=== PATIENT | female | born 2000 | race Caucasian/White ===

== ENCOUNTER 2018-09-17 22:22 | Emergency (ER) | payer OTHER ==
[2018-09-17 22:30] VITALS: BMI 29.1
[2018-09-17] MEDS ORDERED: SODIUM CHLORIDE 1,000 ML IV STA (22:54)
[2018-09-17] MEDS ORDERED: morphine CARPU-JECT 4 MG/1 ML DISP.SYRIN IVPUSH PRN (22:54)
[2018-09-17] MEDS ORDERED: ONDANSETRON 4 MG/2 ML VIAL IVPUSH ONE (22:54)
[2018-09-17] MEDS ORDERED: KETOROLAC TROMETHAMINE 15 MG/ML VIAL IVPUSH ONE (22:56)
--- NOTE | 2018-09-17 22:59 | PDOC ---
Attending Attestation - HPI HPI: 09/17/18 23:19 The patient is a 18 year old female, with no significant past medical history, who presents to the emergency department today complaining of R sided flank pain and dysuria beginning about an hour ago, along with one episode of vomiting. She states that due to the pain, she cant get comfortable. The patient denies chest pain, shortness of breath, headache and dizziness. Denies fever, chills, diarrhea and constipation. Denies hematuria or urgency. Allergies: NKA <Margo Soria - Last Filed: 09/17/18 23:19> - Resident Resident Name: Mark Fonseca - ED Attending Attestation I have performed the following: I have examined & evaluated the patient, The case was reviewed & discussed with the resident, I agree w/resident's findings & plan, Exceptions are as noted - Physicial Exam PE: 09/18/18 04:46 Agree with exam as documented by resident +R CVAT - Medical Decision Making 09/18/18 04:47 Likely nephrolithiasis, eval for infection f/u imaging, analgesia Imaging shows stone that's likely to pass questionable UA abx course, urology f/u dc <Farhan Del Castillo - Last Filed: 09/18/18 04:47> Attestations - Attestations 09/17/18 23:19 Documentation prepared by Margo Soria, acting as medical education manager for Farhan Del Castillo MD. <Margo Soria - Last Filed: 09/17/18 23:19>
[2018-09-17] MEDS ORDERED: KETOROLAC TROMETHAMINE 15 MG/ML VIAL ONE (23:25)
[2018-09-17] MEDS ORDERED: ONDANSETRON 4 MG/2 ML VIAL ONE (23:25)
[2018-09-17] MEDS ORDERED: morphine SULFATE 4 MG/ML VIAL ONE ×2 (23:25→23:40)
[2018-09-17 23:28] LABS: BASO % 0.4 % (0-2.0); EOS % 0.6 % (0-4.5); HEMATOCRIT 40.1 % (32.4-45.2); HEMOGLOBIN 14.1 GM/dL (10.7-15.3); LYMPH % 27.6 % (8-40); MCH 30.9 pg (25.7-33.7); MCHC 35.1 g/dl (32.0-36.0); MEAN PLT VOLUME 8.6 fl (7.5-11.1); NEUT % 64.4 % (42.8-82.8); PLATELET COUNT 235 K/MM3 (134-434); RBC 4.56 M/mm3 (3.60-5.2); RDW 13.6 % (11.6-15.6); WHITE BLOOD COUNT 14.1 K/mm3 (4.0-10.0)
--- NOTE | 2018-09-17 23:29 | PDOC ---
History of Present Illness - General Chief Complaint: Back Pain Stated Complaint: VOMITTING/BODY PAINS Time Seen by Provider: 09/17/18 22:47 History Source: Patient Exam Limitations: No Limitations - History of Present Illness Initial Comments: 09/17/18 23:24 Patient is 18F with no significant medical history here today complaining of several hours of dysuria and R flank pain. Patient states that the pain started suddenly and that she cannot get comfortable. Patient endorses associated vomiting and nausea. Denies fevers, chills. Denies vaginal discharge and vaginal pain. Patient has implantable control in L arm. No prior abdominal surgeries. No constipation/diarrhea. Past History - Past Medical History Allergies/Adverse Reactions: Allergies Allergy/AdvReac Type Severity Reaction Status Date / Time No Known Allergies Allergy Verified 09/17/18 22:30 Home Medications: Ambulatory Orders Cephalexin Monohydrate [Keflex -] 500 mg PO BID #14 capsule 09/18/18 COPD: No - Suicide/Smoking/Psychosocial Hx Smoking History: Never smoked Have you smoked in the past 12 months: No Information on smoking cessation initiated: No Hx Alcohol Use: No Drug/Substance Use Hx: No Review of Systems - Review of Systems Comments:: 09/17/18 23:27 GENERAL/CONSTITUTIONAL: No fever or chills. No weakness. HEAD, EYES, EARS, NOSE AND THROAT: No change in vision. No sore throat. CARDIOVASCULAR: No chest pain or shortness of breath RESPIRATORY: No cough, wheezing, or hemoptysis. GASTROINTESTINAL: +nausea, +vomiting, no diarrhea or constipation. GENITOURINARY: + dysuria, frequency, no hematuria MUSCULOSKELETAL: No joint or muscle swelling or pain. No neck or back pain. SKIN: No rash NEUROLOGIC: No headache, vertigo, loss of consciousness, or change in strength/ sensation. ALLERGIC/IMMUNOLOGIC: No hives or skin allergy. *Physical Exam - Vital Signs Last Vital Signs Temp Pulse Resp BP Pulse Ox 98.5 F 93 H 18 124/82 100 09/17/18 22:26 09/17/18 22:26 09/17/18 22:26 09/17/18 22:26 09/17/18 22:26 - Physical Exam Comments: 09/17/18 23:28 GENERAL: Awake, alert, and fully oriented, constantly shifting in bed HEAD: No signs of trauma, normocephalic, atraumatic EYES: PERRLA, EOMI, sclera anicteric, conjunctiva clear ENT: Auricles normal inspection, hearing grossly normal, nares patent, oropharynx clear without exudates. Moist mucosa NECK: Normal ROM, supple, no lymphadenopathy, JVD, or masses LUNGS: No distress, speaks full sentences, clear to auscultation bilaterally HEART: Regular rate and rhythm, normal S1 and S2, no murmurs, rubs or gallops, peripheral pulses normal and equal bilaterally. ABDOMEN: Soft, nontender, normoactive bowel sounds. No guarding, no rebound. + R sided CVA EXTREMITIES: Normal inspection, Normal range of motion, no edema. No clubbing or cyanosis. NEUROLOGICAL: Cranial nerves II through XII grossly intact. Normal speech, normal gait, no focal sensorimotor deficits SKIN: Warm, Dry, normal turgor, no rashes or lesions noted. Moderate Sedation - Procedure Monitoring Vital Signs: Procedure Monitoring Vital Signs Temperature 98.5 F 09/17/18 22:26 Pulse Rate 93 H 09/17/18 22:26 Respiratory Rate 18 09/17/18 22:26 Blood Pressure 124/82 09/17/18 22:26 O2 Sat by Pulse Oximetry (%) 100 09/17/18 22:26 ED Treatment Course - LABORATORY CBC & Chemistry Diagram: 09/17/18 23:21 09/17/18 23:21 - RADIOLOGY Radiology Studies Ordered: Category Date Time Status SPIRAL- RENAL-STONE CT [CT] Stat CT Scan 09/17/18 22:55 Ordered Medical Decision Making - Medical Decision Making 09/17/18 23:28 Patient is 18F here today with right sided flank pain and dysuria. Vitals normal and stable. DDx includes, but is not limited to: uti, kidney stone, pyelo. Will evaluate with abdominal labs, spiral ct. Will treat with morphine, fluids, zofran. 09/18/18 03:47 CBC shows leukocytosis. CMP normal. UA ?positive, likely dirty sample. CT shows 2mm stone at R UVJ. Patient's pain initially worsened, but now has greatly improved. Given return precautions. Given urology referral. Covering with keflex, but very low suspicion for infected stone. *DC/Admit/Observation/Transfer Diagnosis at time of Disposition: Kidney stone - Discharge Dispostion Disposition: HOME Condition at time of disposition: Good Decision to Admit order: No - Prescriptions Prescriptions: Cephalexin Monohydrate [Keflex -] 500 mg PO BID #14 capsule - Referrals Referrals: Preet Galarza MD [Staff Physician] - - Patient Instructions Printed Discharge Instructions: DI for Kidney Stones Additional Instructions: Please follow up with a urologist, a referral has been included in your paperwork. Please take your antibiotics as prescribed until the prescription is completed. Please return if you have any new, worsening or concerning symptoms, especially increasing pain and fever. - Post Discharge Activity Forms/Work/School Notes: Back to School
[2018-09-17] MEDS ORDERED: morphine CARPU-JECT 4 MG/1 ML DISP.SYRIN IVPUSH ONE ×2 (23:39)
[2018-09-17 23:56] LABS: ALBUMIN 4.7 g/dl (3.4-5.0); ALK PHOS 93 U/L (45-117); ANION GAP 9 MMOL/L (8-16); BILIRUBIN,TOTAL 0.5 mg/dL (0.2-1); BLOOD UREA NITROGEN 10 mg/dL (7-18); CALCIUM 9.7 mg/dL (8.5-10.1); CHLORIDE 105 mmol/L (98-107); CO2 24 mmol/L (21-32); CREATININE 0.7 mg/dL (0.55-1.3); GLUCOSE,RANDOM 106 mg/dL (74-106); LIPASE 178 U/L (73-393); SGOT/AST 27 U/L (15-37); SGPT/ALT 29 U/L (13-61); SODIUM 137 mmol/L (136-145); TOT PROT 7.8 g/dl (6.4-8.2)
[2018-09-18] MEDS ORDERED: morphine SULFATE 4 MG/ML VIAL ONE ×2 (01:25→02:34)
[2018-09-18 01:40] LABS: URINE APPEARANCE CLOUDY; URINE BILIRUBIN NEGATIVE (<2.0 mg/dL); URINE COLOR YELLOW; URINE GLUCOSE (UA) NEGATIVE (NEGATIVE); URINE KETONE TRACE (NEGATIVE); URINE LEUK ESTERASE TRACE (NEGATIVE); URINE NITRITE NEGATIVE (NEGATIVE); URINE PROTEIN NEGATIVE (NEGATIVE); URINE UROBILINOGEN NEGATIVE mg/dL (0.2-1.0)
[2018-09-18 01:53] LABS: EPI CELLS FEW /HPF (FEW); URINE BACTERIA RARE /hpf (NONE SEEN); URINE MUCUS MANY
[2018-09-18] MEDS ORDERED: morphine CARPU-JECT 4 MG/1 ML DISP.SYRIN IVPUSH ONE (02:26)
[2018-09-18] MEDS ORDERED: CEPHALEXIN MONOHYDRATE 500 MG CAPSULE (UD) PO ONE (03:47)
[2018-09-18] MEDS ORDERED: CEPHALEXIN MONOHYDRATE 500 MG CAPSULE (UD) ONE (04:18)
[2018-09-18 04:26] VITALS: BP 132/86; PULSE 99; TEMP 98.2
== END 2018-09-18 04:30 | disposition home or self-care (01) ==
LOC: JER 22:22
PROC: 3E033NZ Introduction of Analgesics, Hypnotics, Sedatives into Peripheral Vein, Percutaneous Approach (ICD-10-PCS; principal; 2018-09-17)
PROC: 3E0337Z Introduction of Electrolytic and Water Balance Substance into Peripheral Vein, Percutaneous Approach (ICD-10-PCS; 2018-09-17)
DX: N20.0 Calculus of kidney (principal)
CPT/HCPCS: 36415; 74176; 80053; 81003; 81015; 83690; 84703; 85025; 87086; 99281-25; J7030

== ENCOUNTER 2018-09-18 18:10 | Emergency (ER) | payer OTHER ==
[2018-09-18] MEDS ORDERED: SODIUM CHLORIDE 1,000 ML IV STA (18:13)
[2018-09-18] MEDS ORDERED: ONDANSETRON 4 MG/2 ML VIAL IVPUSH ONE ×2 (18:13→18:35)
[2018-09-18] MEDS ORDERED: KETOROLAC TROMETHAMINE 30 MG/1 ML VIAL IVPUSH STA (18:13)
[2018-09-18 18:16] VITALS: TEMP 97.8; BMI 29.1
[2018-09-18] MEDS ORDERED: ONDANSETRON 4 MG/2 ML VIAL ONE ×2 (18:16→18:39)
[2018-09-18] MEDS ORDERED: KETOROLAC TROMETHAMINE 30 MG/1 ML VIAL ONE (18:16)
--- NOTE | 2018-09-18 18:20 | PDOC ---
Rapid Medical Evaluation Chief Complaint: Pain, Acute Time Seen by Provider: 09/18/18 18:11 Medical Evaluation: Allergies Allergy/AdvReac Type Severity Reaction Status Date / Time No Known Allergies Allergy Verified 09/18/18 18:14 Vital Signs Temp Pulse Resp BP Pulse Ox 97.8 F 109 H 19 150/90 100 09/18/18 18:12 09/18/18 18:12 09/18/18 18:12 09/18/18 18:12 09/18/18 18:12 09/18/18 18:19 Pt c/o: n/v, worse pain to rt flank and back, stone to uvj , Pt on brief exam: rt cva tenderness Pt ordered for: labs, meds, ivf, u/s Pt to proceed to the ED Discharge Disposition - Diagnosis Kidney stone - Referrals - Patient Instructions - Post Discharge Activity
[2018-09-18 18:30] LABS: BASO % 0.9 % (0-2.0); EOS % 0.5 % (0-4.5); HEMOGLOBIN 14.5 GM/dL (10.7-15.3); LYMPH % 32.8 % (8-40); MCH 30.8 pg (25.7-33.7); MCHC 34.5 g/dl (32.0-36.0); MEAN CELL VOLUME 89.2 fl (80-96); MEAN PLT VOLUME 8.6 fl (7.5-11.1); MONO % 10.8 % (3.8-10.2); PLATELET COUNT 242 K/MM3 (134-434); RBC 4.71 M/mm3 (3.60-5.2); RDW 13.5 % (11.6-15.6)
[2018-09-18] MEDS ORDERED: morphine CARPU-JECT 4 MG/1 ML DISP.SYRIN IVPUSH ONE (18:35)
--- NOTE | 2018-09-18 18:35 | PDOC ---
History of Present Illness - General Chief Complaint: Pain, Acute Stated Complaint: FLANK PAIN, HX KIDNEY STONES Time Seen by Provider: 09/18/18 18:11 History Source: Patient - History of Present Illness Timing/Duration: reports: constant Quality: reports: severe Pain Radiation: reports: flank Past History - Past Medical History Allergies/Adverse Reactions: Allergies Allergy/AdvReac Type Severity Reaction Status Date / Time No Known Allergies Allergy Verified 09/18/18 18:14 Home Medications: Ambulatory Orders Cephalexin Monohydrate [Keflex -] 500 mg PO BID #14 capsule 09/18/18 COPD: No - Immunization History Immunization Up to Date: Yes - Suicide/Smoking/Psychosocial Hx Smoking History: Never smoked Have you smoked in the past 12 months: No Information on smoking cessation initiated: No Hx Alcohol Use: No Drug/Substance Use Hx: No Review of Systems - Review of Systems Constitutional: No: Chills, Fever ABD/GI: Yes: Nausea, Vomiting : Yes: Flank Pain. No: Dysuria, Hematuria *Physical Exam - Vital Signs Last Vital Signs Temp Pulse Resp BP Pulse Ox 97.8 F 109 H 19 150/90 100 09/18/18 18:12 09/18/18 18:12 09/18/18 18:12 09/18/18 18:12 09/18/18 18:12 - Physical Exam General Appearance: Yes: Appropriately Dressed, Severe Distress HEENT: positive: Normal Voice Neck: positive: Supple Respiratory/Chest: negative: Respiratory Distress Gastrointestinal/Abdominal: positive: Soft. negative: Tender, Distended, Guarding, Rebound Musculoskeletal: positive: CVA Tenderness (on the R) Integumentary: positive: Dry, Warm Neurologic: positive: Fully Oriented, Alert, Normal Mood/Affect Moderate Sedation - Procedure Monitoring Vital Signs: Procedure Monitoring Vital Signs Temperature 97.8 F 09/18/18 18:12 Pulse Rate 109 H 09/18/18 18:12 Respiratory Rate 19 09/18/18 18:12 Blood Pressure 150/90 09/18/18 18:12 O2 Sat by Pulse Oximetry (%) 100 09/18/18 18:12 ED Treatment Course - LABORATORY CBC & Chemistry Diagram: 09/18/18 18:21 09/18/18 18:21 - ADDITIONAL ORDERS Additional order review: Laboratory Results 09/18/18 18:21 WBC 10.0 RBC 4.71 Hgb 14.5 Hct 42.0 MCV 89.2 MCH 30.8 MCHC 34.5 RDW 13.5 Plt Count 242 MPV 8.6 Absolute Neuts (auto) 5.5 Neutrophils % 55.0 Lymphocytes % 32.8 Monocytes % 10.8 H Eosinophils % 0.5 Basophils % 0.9 Nucleated RBC % 0 09/18/18 18:21 RBC 4.71 MCV 89.2 MCHC 34.5 RDW 13.5 MPV 8.6 Neutrophils % 55.0 Lymphocytes % 32.8 Monocytes % 10.8 H Eosinophils % 0.5 Basophils % 0.9 - Medications Given in the ED: ED Medications Discontinued Medications Generic Name Dose Route Start Last Admin Trade Name Freq PRN Reason Stop Dose Admin Ketorolac Tromethamine 30 mg 09/18/18 18:13 09/18/18 18:17 Toradol Injection - IVPUSH 09/18/18 18:14 30 mg ONCE STA Administration Ondansetron HCl 4 mg 09/18/18 18:13 09/18/18 18:17 Zofran Injection IVPUSH 09/18/18 18:14 4 mg ONCE ONE Administration Medical Decision Making - Medical Decision Making 09/18/18 18:34 18 yo F, persistent R flank pain and nausea, vomiting. Patient was seen in ED yesterday for symptoms and had multiple stones on CT, including a 2 x 3 mm stone in the R UPJ with mild to moderate hydro and a 2nd, 3 mm non-obstructing stone in the R kidney. Patient was sent home with Keflex only, no pain meds/ antiemetics given. Of note, UA w/ trace LE w/ pending ucx. Pt denies f/c See exam R renal colic Not given pain meds or antiemetic on discharge yesterday On keflex (trace LE on ua yesterday, ucx pending) Pt appears uncomfortable and actively vomiting in ED -pain control -zofran -IVF -labs 09/18/18 18:54 Pt signed out to PHYLLIS Valencia at this time *DC/Admit/Observation/Transfer Diagnosis at time of Disposition: Kidney stone - Referrals - Patient Instructions - Post Discharge Activity
[2018-09-18] MEDS ORDERED: morphine SULFATE 4 MG/ML VIAL ONE (18:39)
[2018-09-18] MEDS ORDERED: TAMSULOSIN HCL 0.4 MG CAP PO ONE (18:59)
[2018-09-18 19:01] LABS: ALBUMIN 4.2 g/dl (3.4-5.0); ALK PHOS 95 U/L (45-117); BILIRUBIN,TOTAL 0.9 mg/dL (0.2-1); BLOOD UREA NITROGEN 10 mg/dL (7-18); CALCIUM 8.5 mg/dL (8.5-10.1); CHLORIDE 106 mmol/L (98-107); CO2 28 mmol/L (21-32); CREATININE 0.8 mg/dL (0.55-1.3); GLUCOSE,RANDOM 93 mg/dL (74-106); SGPT/ALT 27 U/L (13-61); SODIUM 141 mmol/L (136-145); TOT PROT 7.4 g/dl (6.4-8.2)
[2018-09-18 19:02] LABS: ANION GAP 6 MMOL/L (8-16); POTASSIUM 3.9 mmol/L (3.5-5.1); SGOT/AST 23 U/L (15-37)
[2018-09-18] MEDS ORDERED: TAMSULOSIN HCL 0.4 MG CAP ONE (19:04)
--- NOTE | 2018-09-18 20:45 | PDOC ---
*Physical Exam - Vital Signs Last Vital Signs Temp Pulse Resp BP Pulse Ox 97.8 F 109 H 19 150/90 100 09/18/18 18:12 09/18/18 18:12 09/18/18 18:12 09/18/18 18:12 09/18/18 18:12 - Physical Exam Comments: 09/18/18 20:40 GENERAL: Well developed, well nourished. Awake and alert. No acute distress. HEENT: Normocephalic, atraumatic. PERRLA, EOMI. No conjunctival pallor. Sclera are non- icteric. Moist mucous membranes. Oropharynx is clear. NECK: Supple. Full ROM. No JVD. Carotid pulses 2+ and symmetric, without bruits. No thyromegaly. No lymphadenopathy. CARDIOVASCULAR: Regular rate and rhythm. No murmurs, rubs, or gallops. Distal pulses are 2+ and symmetric. PULMONARY: No evidence of respiratory distress. Lungs clear to auscultation bilaterally. No wheezing, rales or rhonchi. ABDOMINAL: Soft. Non-tender. Non-distended. No rebound or guarding. No organomegaly. Normoactive bowel sounds. MUSCULOSKELETAL Right CVAT Normal range of motion at all joints. No bony deformities or tenderness. EXTREMITIES: No cyanosis. No clubbing. No edema. No calf tenderness. SKIN: Warm and dry. Normal capillary refill. No rashes. No jaundice. NEUROLOGICAL: Alert, awake, appropriate. Cranial nerves 2-12 intact. No deficits to light touch and temperature in face, upper extremities and lower extremities. No motor deficits in the in face, upper extremities and lower extremities. Normoreflexic in the upper and lower extremities. Normal speech. Toes are down- going bilaterally. Gait is normal without ataxia. PSYCHIATRIC: Cooperative. Good eye contact. Appropriate mood and affect. ED Treatment Course - LABORATORY CBC & Chemistry Diagram: 09/18/18 18:21 09/18/18 18:21 - ADDITIONAL ORDERS Additional order review: Laboratory Results 09/18/18 18:21 Sodium 141 Potassium 3.9 Chloride 106 Carbon Dioxide 28 Anion Gap 6 L BUN 10 Creatinine 0.8 Creat Clearance w eGFR > 60 Random Glucose 93 Calcium 8.5 Total Bilirubin 0.9 AST 23 ALT 27 Alkaline Phosphatase 95 Total Protein 7.4 Albumin 4.2 09/18/18 18:21 RBC 4.71 MCV 89.2 MCHC 34.5 RDW 13.5 MPV 8.6 Neutrophils % 55.0 Lymphocytes % 32.8 Monocytes % 10.8 H Eosinophils % 0.5 Basophils % 0.9 - Medications Given in the ED: ED Medications Discontinued Medications Generic Name Dose Route Start Last Admin Trade Name Freq PRN Reason Stop Dose Admin Sodium Chloride 1,000 mls @ 1,000 mls/hr 09/18/18 18:13 09/18/18 18:45 Normal Saline - IV 09/18/18 19:12 1,000 mls/hr ASDIR STA Administration Ketorolac Tromethamine 30 mg 09/18/18 18:13 09/18/18 18:17 Toradol Injection - IVPUSH 09/18/18 18:14 30 mg ONCE STA Administration Morphine Sulfate 4 mg 09/18/18 18:35 09/18/18 18:45 Morphine Injection - IVPUSH 09/18/18 18:36 4 mg ONCE ONE Administration Ondansetron HCl 4 mg 09/18/18 18:13 09/18/18 18:17 Zofran Injection IVPUSH 09/18/18 18:14 4 mg ONCE ONE Administration Ondansetron HCl 4 mg 09/18/18 18:35 09/18/18 18:46 Zofran Injection IVPUSH 09/18/18 18:36 4 mg ONCE ONE Administration Tamsulosin HCl 0.4 mg 09/18/18 18:59 09/18/18 19:10 Flomax - PO 09/18/18 19:00 0.4 mg ONCE ONE Administration Progress Note - Progress Note Progress Note: 18-year-old female presents to the emergency department for her second visit since yesterday complaining of right-sided flank pain with some nausea and vomiting. Patient was seen yesterday for similar symptoms/had a CAT scan which shows a 2 x 3 mm stone in the right UPJ with mild to moderate hydronephrosis and a second 3 mm nonobstructing stone in the right kidney. Patient was ultimately discharged on antibiotics/Keflex. Patient presents today without fever, chills, headache, dizziness, lightheadedness, chest pain, shortness of breath, abdominal discomfort, urinary symptoms: Frequency/urgency/hesitancy, hematuria. Patient states her right-sided flank pain is still persistent. Patient states she took [id number] Tylenol without much relief. Patient had a renal ultrasound this evening which shows mild to moderate right hydronephrosis without obvious interval change in comparison to the CT study performed earlier this same date. The left kidneys demonstrates no sonographic abnormalities. A 2 mm nonobstructing right renal lower pole calculus noted on the CT cannot be appreciated on the sonogram of the kidneys appear unremarkable in positioning, cortical thickness, echogenicity and size. The right kidney measures 10.7 cm in length, left kidney 9.8 cm. *DC/Admit/Observation/Transfer Diagnosis at time of Disposition: Kidney stone - Discharge Dispostion Disposition: HOME Condition at time of disposition: Stable Decision to Admit order: No - Referrals Referrals: Sepideh May MD [Staff Physician] - - Patient Instructions Printed Discharge Instructions: Kidney Stones -- Adult Additional Instructions: You had an ultrasound to the kidneys while in the emergency department today which shows mild to moderate right hydronephrosis which means you need to increase her fluids. You informed last evening when you were here that you had 2 kidney stones. It is important that you follow-up with your urologist or the one listed on your discharge for further care. Pain medication has been sent to your pharmacy. Return back to the emergency department for severe/persistent or worsening symptoms - Post Discharge Activity
[2018-09-18 21:26] VITALS: BP 138/82; PULSE 89
== END 2018-09-18 21:26 | disposition home or self-care (01) ==
LOC: JER 18:10
PROC: 3E0333Z Introduction of Anti-inflammatory into Peripheral Vein, Percutaneous Approach (ICD-10-PCS; principal; 2018-09-18)
PROC: 3E033NZ Introduction of Analgesics, Hypnotics, Sedatives into Peripheral Vein, Percutaneous Approach (ICD-10-PCS; 2018-09-18)
PROC: 3E0337Z Introduction of Electrolytic and Water Balance Substance into Peripheral Vein, Percutaneous Approach (ICD-10-PCS; 2018-09-18)
DX: N20.0 Calculus of kidney (principal)
CPT/HCPCS: 36415; 76775-TC; 80053; 85025; 99283-25; J7030

== ENCOUNTER 2020-05-23 11:19 | Emergency (ER) | payer OTHER ==
[2020-05-23 11:24] VITALS: BMI 30.7
--- NOTE | 2020-05-23 11:45 | PDOC ---
History of Present Illness - General History Source: Patient - History of Present Illness Timing/Duration: reports: intermittent Abdominal Pain Onset Location: reports: suprapubic <Tracie Jackson - Last Filed: 05/23/20 15:54> <Citlaly Blackmon - Last Filed: 05/24/20 09:03> - General Chief Complaint: Pain, Acute Stated Complaint: LWR STOMACH PAIN Time Seen by Provider: 05/23/20 11:25 Past History - Medical History COPD: No Disorders: Yes (KIDNEY STONES) Other medical history: PCOS - Reproductive History Is Patient Now?: No - Immunization History Immunization Up to Date: Yes - Psycho-Social/Smoking History Smoking History: Never smoked Have you smoked in the past 12 months: No - Substance Abuse Hx (Audit-C & DAST Scrn) How often the patient has a drink containing alcohol: Never Score: In Men: 4 or > Positive; In Women: 3 or > Positive: 0 Screen Result (Pos requires Nsg. Audit-10AR): Negative In the last yr the pt used illegal drug/Rx for NonMed reason: No Score: Yes response is considered Positive: 0 Screen Result (Positive result requires Nsg. DAST-10): Negative <Tracie Jackson - Last Filed: 05/23/20 15:54> <Citlaly Blackmon - Last Filed: 05/24/20 09:03> - Medical History Allergies/Adverse Reactions: Allergies Allergy/AdvReac Type Severity Reaction Status Date / Time No Known Allergies Allergy Verified 05/23/20 11:21 Home Medications: Ambulatory Orders NK [No Known Home Medication] 05/23/20 Review of Systems - Review of Systems Constitutional: No: Chills, Fever ABD/GI: Yes: Abdominal cramping. No: Blood Streaked Bowels, Constipated, Diarrhea, Nausea, Rectal Bleeding, Vomiting : No: Dysuria, Discharge, Flank Pain, Hematuria <Tracie Jackson - Last Filed: 05/23/20 15:54> *Physical Exam - Vital Signs Last Vital Signs Temp Pulse Resp BP Pulse Ox 98.5 F 107 H 20 126/87 100 05/23/20 11:21 05/23/20 11:21 05/23/20 11:21 05/23/20 11:21 05/23/20 11:21 - Physical Exam General Appearance: Yes: Appropriately Dressed. No: Apparent Distress HEENT: positive: Normal Voice Neck: positive: Supple Respiratory/Chest: negative: Respiratory Distress Gastrointestinal/Abdominal: positive: Tender (to b/l suprapubic area, NT over mcburneys), Soft Musculoskeletal: negative: CVA Tenderness Integumentary: positive: Dry, Warm Neurologic: positive: Fully Oriented, Alert, Normal Mood/Affect <Tracie Jackson - Last Filed: 05/23/20 15:54> - Vital Signs Last Vital Signs Temp Pulse Resp BP Pulse Ox 98 F 95 H 17 125/74 99 05/23/20 16:00 05/23/20 16:00 05/23/20 16:00 05/23/20 16:00 05/23/20 16:00 <Citlaly Blackmon - Last Filed: 05/24/20 09:03> ED Treatment Course - LABORATORY CBC & Chemistry Diagram: 05/23/20 12:24 05/23/20 12:24 <Tracie Jackson - Last Filed: 05/23/20 15:54> - LABORATORY CBC & Chemistry Diagram: 05/23/20 12:24 05/23/20 12:24 - ADDITIONAL ORDERS Additional order review: 05/23/20 12:24 RBC 4.47 MCV 89.1 MCHC 33.4 RDW 13.4 MPV 8.0 Neutrophils % 60.2 Lymphocytes % 30.6 Monocytes % 8.4 Eosinophils % 0.4 Basophils % 0.4 - Medications Given in the ED: ED Medications Discontinued Medications Generic Name Dose Route Start Last Admin Trade Name Carsonq PRN Reason Stop Dose Admin Ketorolac Tromethamine 30 mg 05/23/20 11:48 05/23/20 13:20 Toradol Injection - IVPUSH 05/23/20 11:49 Not Given ONCE ONE <Citlaly Blackmon - Last Filed: 05/24/20 09:03> Medical Decision Making - Medical Decision Making 05/23/20 11:44 20 yo F, history of PCOS and renal stones, here with persistent pain to b/l pelvic area that patient describes as crampy in nature, comes and goes, usually lasting for 5 minutes, worsened last night. Denies any dysuria, vaginal discharge, nausea, vomiting, fever or chills. No change in bowel movements. Patient states she has irregular menses and that last menses was a month ago. No new sexual partner or h/o STDs see exam Pelvic pain R/o preg vs uti vs torsion vs PID, less likey recurrent renal stone, [facility] US 05/23/20 13:50 Preg test +. Pt was unaware, came off control 3 months ago as trying to get . H/o irreg menses. Will get US r/o ectopic vs pelvic pain in nl . No vag bleed at this time. Of note, labs/ua unremarkable otherwise 05/23/20 14:00 US read as of unknown location as there is no IUP or gross adnexal mass. Beta 291. Findings possibly representing early as discussed with patient but informed that it is very important for patient to have follow- up either with [facility] or in ER for repeat testing in 2 days to r/o ectopic preg. Patient currently stable for discharge with 48 hours follow-up <Tracie Jackson - Last Filed: 05/23/20 15:54> - Medical Decision Making I reviewed the case with the mid-level practitioner and agree with the mid-level practitioner's assessment, diagnosis and disposition. <Citlaly Blackmon - Last Filed: 05/24/20 09:03> Discharge - Discharge Information Problems reviewed: Yes <Tracie Jackson - Last Filed: 05/23/20 15:54> <Citlaly Blackmon - Last Filed: 05/24/20 09:03> - Discharge Information Clinical Impression/Diagnosis: Qualifiers: Weeks of gestation: unspecified Qualified Code(s): Z34.90 - Encounter for supervision of normal , unspecified, unspecified trimester Pelvic pain affecting Qualifiers: Trimester: first trimester Qualified Code(s): O26.891 - Other specified related conditions, first trimester Condition: Good Disposition: HOME - Patient Discharge Instructions Patient Printed Discharge Instructions: Managing Symptoms of Additional Instructions: Your test was positive here. You ultrasound showed no obvious evidence of but your beta HCG was only 291 so findings may indicate early However it is very important that you either return or follow up with [facility] in 2 days for repeat testing to ensure you are not having an ectopic as discussed today Take tylenol only as needed for pain - Post Discharge Activity Work/Back to School Note: Back to Work
[2020-05-23] MEDS ORDERED: KETOROLAC TROMETHAMINE 30 MG/1 ML VIAL IVPUSH ONE (11:48)
[2020-05-23 13:00] LABS: BASO % 0.4 % (0-2.0); EOS % 0.4 % (0-4.5); HEMATOCRIT 39.9 % (32.4-45.2); HEMOGLOBIN 13.3 GM/dL (10.7-15.3); LYMPH % 30.6 % (8-40); MCH 29.7 pg (25.7-33.7); MCHC 33.4 g/dl (32.0-36.0); MEAN CELL VOLUME 89.1 fl (80-96); MONO % 8.4 % (3.8-10.2); NEUT % 60.2 % (42.8-82.8); PLATELET COUNT 239 K/MM3 (134-434); RBC 4.47 M/mm3 (3.60-5.2); RDW 13.4 % (11.6-15.6); WHITE BLOOD COUNT 9.1 K/mm3 (4.0-10.0)
[2020-05-23 13:02] LABS: HCG,QUALITATIVE URINE Positive; PH,URINE 5.5 (5.0-8.0); URINE APPEARANCE CLEAR; URINE BILIRUBIN NEGATIVE (NEGATIVE); URINE COLOR YELLOW; URINE GLUCOSE (UA) NEGATIVE (NEGATIVE); URINE KETONE 1+ (NEGATIVE); URINE LEUK ESTERASE NEGATIVE (NEGATIVE); URINE NITRITE NEGATIVE (NEGATIVE); URINE PROTEIN NEGATIVE (NEGATIVE); URINE UROBILINOGEN 0.2 mg/dL (0.2-1.0)
[2020-05-23 13:28] LABS: ALBUMIN 4.3 g/dl (3.4-5.0); BILIRUBIN,TOTAL 0.9 mg/dL (0.2-1); BLOOD UREA NITROGEN 6.6 mg/dL (7-18); CALCIUM 9.1 mg/dL (8.5-10.1); CREATININE 0.5 mg/dL (0.55-1.3); POTASSIUM 3.7 mmol/L (3.5-5.1); TOT PROT 7.5 g/dl (6.4-8.2)
[2020-05-23 16:13] VITALS: BP 125/74; PULSE 95; TEMP 98
== END 2020-05-23 16:00 | disposition home or self-care (01) ==
LOC: JER 11:19
DX: O26.891 Other specified pregnancy related conditions, first trimester (principal); Z3A.01 Less than 8 weeks gestation of pregnancy
CPT/HCPCS: 36415; 76817-TC; 80053; 81003; 84702; 84703; 85025; 87491; 87591; 99285-25